=== PATIENT | female | born 1965 | race Caucasian/White ===

== ENCOUNTER → 2025-01-28 | Outpatient (REF) | payer OTHER | LOC: DX 11:37 | PROVIDERS: ATTEND Internal Medicine Infectious Disease | DX: Z45.2 Encounter for adjustment and management of vascular access device (principal); A42.2 Cervicofacial actinomycosis; M27.2 Inflammatory conditions of jaws | CPT/HCPCS: 36569; 71045 ==

== ENCOUNTER → 2025-03-15 | Outpatient (REF) | payer OTHER ==
[2025-03-15 16:48] LABS: EST GLOMERULAR FILTRATION RATE 110.0 ML/MIN (>=60)
== END ==
LOC: CT 15:54
PROVIDERS: ATTEND Internal Medicine
DX: M89.9 Disorder of bone, unspecified (principal)
CPT/HCPCS: 36415; 82565; 84520